=== PATIENT | female | born 1980 | race Caucasian/White ===

== ENCOUNTER 2022-06-07 17:53 | Inpatient (IN) ==
[2022-06-07] MEDS ORDERED: IPRATROPIUM/ALBUTEROL 3 ML AMPUL.NEB NEB ONE (20:05)
--- NOTE | 2022-06-07 20:10 | Emergency Department Note ---
SOB HPI General Chief Complaint: Shortness of Breath/Dyspnea Stated Complaint: phuemonia getting worse Time Seen by Provider: 06/07/22 19:59 Source: patient Mode of arrival: ambulatory Limitations: no limitations History of Present Illness HPI Narrative: Narrative: Patient presents back to the ED with complaints of feeling worse than yesterday. She still reports shortness of breath. She states she feels like she is not getting enough air when. She reports her fever has improved. She denies hemoptysis, cardiac chest pain, heart palpitation, pain range her left arm or neck, nausea, vomiting, diarrhea abdominal pain. She states has been using her antibiotics as prescribed. Patient denies any relieving or aggravating factors. Related Data Previous Rx's Medication Instructions Recorded amoxicillin 875 mg-potassium 1 tab PO BID 7 days #14 tabs 06/06/22 clavulanate 125 mg tablet azithromycin 250 mg tablet See Rx Instructions PO .COMPLEX #6 06/07/22 tabs Allergies Allergy/AdvReac Type Severity Reaction Status Date / Time House Dust Allergy Unknown Sneezing, Verified 06/06/22 23:34 Cough, Sinus Issues pollen extracts Allergy Unknown Sneezing, Verified 06/06/22 23:34 Cough, Sinus Issues Review of Systems ROS ROS Narrative: Narrative: All systems ED: reviewed and negative except as stated. [facility] Narrative Patient History Narrative: Narrative: Medical/Surgical/Family History All Active Problems (Updated 06/07/22 @ 20:22 by Solomon Cotter DO) Sepsis (Acute) Bilateral pneumonia (Acute) Pronation of both feet (Acute) Strain of tendon of ankle (Acute) Xanthoma (Acute) Morbid obesity with BMI of 40.0-44.9, adult (Acute) Gestational diabetes (Chronic) Migraine (Chronic) Seasonal allergies (Chronic) Medical History Gestational diabetes With first . Migraine Occasional Morbid obesity with BMI of 40.0-44.9, adult Pronation of both feet Seasonal allergies Sneezing, Cough, Sinus Issues Strain of tendon of ankle Xanthoma Surgical History History of 2001, 2002, 2007 History of cholecystectomy (~2019) Family History Sister Brain cancer Grandmother Breast cancer Maternal Diabetes mellitus Maternal Father Hypertension Social History Smoking Status: Never smoker Alcohol Intake Frequency: a few times a month Substance Use: marijuana Exam Narrative Narrative: Narrative: General Limitations: no limitations General appearance: Absent in distress ENT ENT: Present normal oropharynx and mucous membranes moist Chest Chest: Present normal inspection; Absent tenderness Respiratory Respiratory: Present rales/crackles and decreased breath sounds; Absent respirat ory distress Cardiovascular Cardiovascular: Present normal rhythm and tachycardia Adbominal Abdominal: Present soft; Absent tenderness Neurological Neurological: Present oriented X3 and normal gait Psychiatric Psychiatric: Present anxious and polite Skin Skin: Present warm (WNL) and intact Course Course Course Narrative: Patient was evaluated for complaints of worsening shortness of breath. Patient maintained adequate oxygen saturation of greater than 90% on room air. I did give her a breathing treatment with a DuoNeb and her oxygen level did improve up to 97% on room air. Repeat chest x-ray today shows that his mildly worse when compared to previous chest x-ray. Repeat lab work showed that her white cell count is worse when compared to last night. She still tachycardic and tachypneic. Patient has been on Augmentin x2 days as well as the IV antibiotics I gave her last night here in the ED believe patient to be failing outpatient therapy. Patient does meet sepsis criteria with leukocytosis, tachycardia, tachypnea and source of infection. She is afebrile today. Case was discussed with hospitalist who has agreed to admit the patient for worsening pneumonia and failed outpatient therapy. Patient understand that she does not meet inpatient criteria and will be admitted to observation. Patient expressed verbal understanding agreement of plan. Consultations Consultation #1: Case discussed with hospitalist agreed to admit the patient. Time: 20:40 Vital Signs Vital signs: Vital Signs Temperature 97.3 F 06/07/22 17:57 Pulse Rate 122 H 06/07/22 17:57 Respiratory Rate 24 H 06/07/22 17:57 Blood Pressure 128/87 06/07/22 17:57 Pulse Oximetry (%) 96 06/07/22 17:57 Oxygen Delivery Method Room Air 06/07/22 17:57 Temperature 97.3 F 06/07/22 17:57 Pulse Rate 122 H 06/07/22 17:57 Respiratory Rate 24 H 06/07/22 17:57 Blood Pressure 128/87 06/07/22 17:57 Pulse Oximetry (%) 96 06/07/22 17:57 Oxygen Delivery Method Room Air 06/07/22 17:57 MDM MDM Narrative Medical decision making narrative: Narrative: Differential Diagnosis Differential Diagnosis: Pneumonia, sepsis Medical Records Medical records reviewed: Yes I reviewed the patient's medical records. Lab Data Lab results reviewed: Yes I reviewed the patient's lab results. 06/07/22 20:10 Labs: Lab Results 06/07/22 06/07/22 06/07/22 Range/Units 20:07 20:08 20:10 WBC 20.8 H (4.5-11.0) K/mcL RBC 4.78 (3.59-5.38) M/mcL Hgb 13.7 (11.2-15.7) g/dL Hct 41.9 (34.1-44.9) % POC Hct 43.0 (36-48) MCV 87.7 (80.0-100.0) fL MCH 28.7 (26.0-34.0) pg MCHC 32.7 (31.0-36.0) g/dL RDW 13.7 (11.5-14.5) % Plt Count 300 (140-440) K/mcL MPV 9.9 (8.8-12.5) fL Immature Gran % (Auto) 1.1 H (0.0-0.5) % Neut % (Auto) 86.9 H (38.0-78.0) % Lymph % (Auto) 7.2 L (15.5-49.0) % [place] % (Auto) 2.9 (1.0-12.0) % Eos % (Auto) 1.7 (0.0-7.0) % Baso % (Auto) 0.2 (0.0-2.0) % Lymph # (Auto) 1.49 L (1.50-4.80) K/mcL [place] # (Auto) 0.61 (0.10-0.90) K/mcL Eos # (Auto) 0.36 (0.00-0.70) K/mcL Baso # (Auto) 0.04 (0.00-0.30) K/mcL Immature Gran # 0.22 H (0.00-0.05) K/mcl Absolute Neutrophils 18.11 H (1.80-8.00) K/mcL POC VBG pH 7.33 (7.32-7.42) POC VBG pCO2 at Temp 48.7 (41-51) POC VBG pO2 21 L (25-40) POC VBG HCO3 25.8 (24-28) POC VBG Total CO2 27.0 (25-29) POC Venous O2 Sat 30.0 L (40-70) POC VBG Base Excess 0 (-2-2) VBG Lactic Acid 0.9 (0.5-2) POC Sodium 137 (133-145) POC Potassium 3.6 (3.3-5.1) POC Chloride 101 (96-108) POC Total CO2 28.0 (22-30) POC BUN 15 (6-20) POC Creatinine 0.9 (0.6-1.2) POC Glucose 105 (70-105) POC WB Ioniz Calcium 1.14 L (1.16-1.32) POC Troponin I (0.00-0.08) 06/07/22 Range/Units 20:13 WBC (4.5-11.0) K/mcL RBC (3.59-5.38) M/mcL Hgb (11.2-15.7) g/dL Hct (34.1-44.9) % POC Hct (36-48) MCV (80.0-100.0) fL MCH (26.0-34.0) pg MCHC (31.0-36.0) g/dL RDW (11.5-14.5) % Plt Count (140-440) K/mcL MPV (8.8-12.5) fL Immature Gran % (Auto) (0.0-0.5) % Neut % (Auto) (38.0-78.0) % Lymph % (Auto) (15.5-49.0) % [place] % (Auto) (1.0-12.0) % Eos % (Auto) (0.0-7.0) % Baso % (Auto) (0.0-2.0) % Lymph # (Auto) (1.50-4.80) K/mcL [place] # (Auto) (0.10-0.90) K/mcL Eos # (Auto) (0.00-0.70) K/mcL Baso # (Auto) (0.00-0.30) K/mcL Immature Gran # (0.00-0.05) K/mcl Absolute Neutrophils (1.80-8.00) K/mcL POC VBG pH (7.32-7.42) POC VBG pCO2 at Temp (41-51) POC VBG pO2 (25-40) POC VBG HCO3 (24-28) POC VBG Total CO2 (25-29) POC Venous O2 Sat (40-70) POC VBG Base Excess (-2-2) VBG Lactic Acid (0.5-2) POC Sodium (133-145) POC Potassium (3.3-5.1) POC Chloride (96-108) POC Total CO2 (22-30) POC BUN (6-20) POC Creatinine (0.6-1.2) POC Glucose (70-105) POC WB Ioniz Calcium (1.16-1.32) POC Troponin I 0.08 (0.00-0.08) Core Measures AMI Core Measures Followed: Yes Discharge Plan Patient/Caregiver Discharge Instructions Pt seen by SHOW CARD WRITER/PA only: No Clinical Impression: Sepsis Qualifiers: Sepsis type: sepsis due to unspecified organism Sepsis acute organ dysfunction status: without acute organ dysfunction Qualified Code(s): A41.9 - Sepsis, unspecified organism Bilateral pneumonia Qualifiers: Pneumonia type: due to unspecified organism Lung location: unspecified part of lung Qualified Code(s): J18.9 - Pneumonia, unspecified organism Patient Disposition: Xfer As Outpt/Obs ([facility]) Condition: Fair Follow up with: Linwood Mercado MD [Primary Care Provider] - Prescriptions: No Action amoxicillin-pot clavulanate 875-125 mg tablet 1 tab PO BID 7 Days Qty: 14 0RF azithromycin 250 mg tablet See Rx Instructions .ROUTE .COMPLEX Qty: 6 0RF Rx Instructions: For 250 mg dose pack: take 500 mg today (day 1), then 250 mg for 4 days (days 2-5)
[2022-06-07 20:11] LABS: POC Calcium, Ionized 1.14 (1.16-1.32); POC Creatinine 0.9 (0.6-1.2); POC Potassium 3.6 (3.3-5.1)
[2022-06-07] MEDS ORDERED: cefTRIAXone 2 GM in DEXTROSE 5% IN WATER 50 ML IV ONE (20:19)
[2022-06-07] MEDS ORDERED: AZITHROMYCIN 250 MG TABLET PO ONE (20:19)
[2022-06-07 20:46] LABS: Basophils # (Auto) 0.04 K/mcL (0.00-0.30); Basophils % (Auto) 0.2 % (0.0-2.0); Eosinophils # (Auto) 0.36 K/mcL (0.00-0.70); Eosinophils % (Auto) 1.7 % (0.0-7.0); Hematocrit 41.9 % (34.1-44.9); Hemoglobin 13.7 g/dL (11.2-15.7); Lymphocytes # (Auto) 1.49 K/mcL (1.50-4.80); Lymphocytes % (Auto) 7.2 % (15.5-49.0); Mean Cell Volume 87.7 fL (80.0-100.0); Mean Corpuscular HGB Conc 32.7 g/dL (31.0-36.0); Mean Platelet Volume 9.9 fL (8.8-12.5); Monocytes # (Auto) 0.61 K/mcL (0.10-0.90); Monocytes % (Auto) 2.9 % (1.0-12.0); Neutrophils % (Auto) 86.9 % (38.0-78.0); Platelet Count 300 K/mcL (140-440); RBC 4.78 M/mcL (3.59-5.38); Red Cell Distribution Width 13.7 % (11.5-14.5); WBC 20.8 K/mcL (4.5-11.0)
[2022-06-07] MEDS ORDERED: 0.9 % SODIUM CHLORIDE 1,000 ML IV ONE (20:49)
--- NOTE | 2022-06-07 21:00 | Internal Med History&Physical ---
HPI History of Present Illness Patient information: Note initiated : 06/07/22 at 8:50 pm Service Date, if different from initiated Date: [] Patient: Urmila Callejas a 42 y/o F admitted on for phuemonia getting worse. Chief Complaint: [] History of present illness: Ms. Callejas is a 42 year old F Patient states she presented to the urgent care on the in the evening and was diagnosed with acute viral syndrome. She was tested for COVID which was negative. She then went to the ED on the morning of the second because she was feeling worse. With shortness of breath and cough. She has been coughing up phlegm of brown sputum. She gets short of breath with ambulation. She had a fever that day. She had been prescribed Augmentin. She was tachycardic. She was on room air. She was discharged with a additional azithromycin. She had a CT of the chest which showed no PEs but did show bilateral pneumonia. She presents back to the ED because she says she feels worse. Continued shortness of breath and cough. Dyspnea on exertion. She has some pleuritic chest pain as well. She is afebrile in the ED, she is only barely tachypneic. Blood pressure stable. She does have a leukocytosis persistent. Lactate level is normal. EKG shows sinus tach She said fevers and chills but those are improving. She has diarrhea and says she gets diarrhea when she gets ill Review of Systems: Pertinent positives as above. Denies headache/nausea/vomiting/abdominal pain/. Remaining 10 point review of system reviewed negative PFSH PFSH All Active Problems (Updated 06/07/22 @ 20:22 by Solomon Cotter DO) Sepsis (Acute) Bilateral pneumonia (Acute) Pronation of both feet (Acute) Strain of tendon of ankle (Acute) Xanthoma (Acute) Morbid obesity with BMI of 40.0-44.9, adult (Acute) Gestational diabetes (Chronic) Migraine (Chronic) Seasonal allergies (Chronic) Medical History Gestational diabetes With first . Migraine Occasional Morbid obesity with BMI of 40.0-44.9, adult Pronation of both feet Seasonal allergies Sneezing, Cough, Sinus Issues Strain of tendon of ankle Xanthoma Surgical History History of 2001, 2002, 2007 History of cholecystectomy (~2019) Family History Sister Brain cancer Grandmother Breast cancer Maternal Diabetes mellitus Maternal Father Hypertension Social History marital status: occupational status: employed smoking status: Never smoker alcohol intake frequency: a few times a month substance use type: marijuana MEDS/ALLERGIES Home Medications and Allergies Home Medications Medication Instructions Recorded Confirmed Type amoxicillin 875 mg-potassium 1 tab PO BID 7 days #14 tabs 06/06/22 Rx clavulanate 125 mg tablet azithromycin 250 mg tablet See Rx Instructions PO .COMPLEX #6 06/07/22 Rx tabs Allergies Allergy/AdvReac Type Severity Reaction Status Date / Time House Dust Allergy Unknown Sneezing, Verified 06/06/22 23:34 Cough, Sinus Issues pollen extracts Allergy Unknown Sneezing, Verified 06/06/22 23:34 Cough, Sinus Issues EXAM Constitutional Vitals: Temp Pulse Resp BP Pulse Ox O2 Del Method 97.3 F 122 H 24 H 128/87 96 Room Air 06/07/22 17:57 06/07/22 17:57 06/07/22 17:57 06/07/22 17:57 06/07/22 17:57 06/07/22 17:57 Exam: General: Alert, Awake, appears anxious, obese Eyes/N/T: EOMI, PERRL, dry MM Head/Neck: neck supple, normocephalic atraumatic CV: Tachycardic but regular, No murmurs, normal s1/s2 Pulm: Rhonchi/rales b/l, no wheezing Abd: soft, nontender, +BS x4 Ext: no clubbing/cyanosis/edema Neuro: Alert, no focal deficits, moves all extremities, CN 2-12 grossly intact, sensations intact b/l upper/lower Skin: warm/dry DATA Data Completed and Pending Labs: Labs from last 24 hours 06/07/22 06/07/22 06/07/22 20:13 20:10 20:08 WBC 20.8 H RBC 4.78 Hgb 13.7 Hct 41.9 POC Hct MCV 87.7 MCH 28.7 MCHC 32.7 RDW 13.7 Plt Count 300 MPV 9.9 Immature Gran % (Auto) 1.1 H Neut % (Auto) 86.9 H Lymph % (Auto) 7.2 L [place] % (Auto) 2.9 Eos % (Auto) 1.7 Baso % (Auto) 0.2 Lymph # (Auto) 1.49 L [place] # (Auto) 0.61 Eos # (Auto) 0.36 Baso # (Auto) 0.04 Immature Gran # 0.22 H Absolute Neutrophils 18.11 H POC VBG pH 7.33 POC VBG pCO2 at Temp 48.7 POC VBG pO2 21 L POC VBG HCO3 25.8 POC VBG Total CO2 27.0 POC Venous O2 Sat 30.0 L POC VBG Base Excess 0 VBG Lactic Acid 0.9 POC Sodium POC Potassium POC Chloride POC Total CO2 POC BUN POC Creatinine POC Glucose POC WB Ioniz Calcium POC Troponin I 0.08 06/07/22 20:07 WBC RBC Hgb Hct POC Hct 43.0 MCV MCH MCHC RDW Plt Count MPV Immature Gran % (Auto) Neut % (Auto) Lymph % (Auto) [place] % (Auto) Eos % (Auto) Baso % (Auto) Lymph # (Auto) [place] # (Auto) Eos # (Auto) Baso # (Auto) Immature Gran # Absolute Neutrophils POC VBG pH POC VBG pCO2 at Temp POC VBG pO2 POC VBG HCO3 POC VBG Total CO2 POC Venous O2 Sat POC VBG Base Excess VBG Lactic Acid POC Sodium 137 POC Potassium 3.6 POC Chloride 101 POC Total CO2 28.0 POC BUN 15 POC Creatinine 0.9 POC Glucose 105 POC WB Ioniz Calcium 1.14 L POC Troponin I A/P Narrative A/P Narrative: A: *b/l PNA: -on room air, PSI=34 -CTA no pe, b/l pna *SIRS: tachycardia, mild tachypnea, leukocytosis. afebrile *Sinus tach: likely anxiety component *Obesity: BMI 41 * P: -IV abx, mrsa screen -pending BC/SC -IS/Acapella, nebs -covid pending -strep pending -Monitor O2 sats and rhythm/pulse -cmp, sputum, pct -ppx: Lovenox Time Spent With Patient Time: Total time spent is greater than 50% in coordination of care (as documented) at patient's floor/unit and/or counseling patient: Initial: Total time with patient: 75 - 90 minutes
[2022-06-07 21:27] LABS: ALT/SGPT 17 U/L (<40); AST/SGOT 15 U/L (<32); Albumin 3.5 gm/dL (3.2-5.2); Alkaline Phosphatase 118 U/L (39-117); Bilirubin,Direct < 0.2 mg/dL (0-0.3); Bilirubin,Total 0.4 mg/dL (0.1-1.0)
[2022-06-07 21:48] LABS: Band Neutrophils % 5 % (0-10); Eosinophils % (Manual) 4 % (0-7); Lymphocytes % 7 % (15-49); Monocytes % (Manual) 2 % (1-12); Platelet Estimate NORMAL (Normal); RBC Morphology NORMAL (Normal); Segmented Neutrophils % 82 % (38-78)
[2022-06-07] MEDS ORDERED: POTASSIUM CHLORIDE 20 MEQ TABLET PO PRN ×2 (22:20)
[2022-06-07] MEDS ORDERED: AZITHROMYCIN 500 MG in DEXTROSE 5% IN WATER 250 ML IV SCH (22:20)
[2022-06-07] MEDS ORDERED: MAGNESIUM SULFATE 2 GM/50 ML BAG IV PRN (22:20)
[2022-06-07] MEDS ORDERED: cefTRIAXone 2 GM in DEXTROSE 5% IN WATER 50 ML IV SCH (22:20)
[2022-06-07] MEDS ORDERED: POTASSIUM CHLORIDE 40 MEQ in DEXTROSE 5% IN WATER 500 ML IV PRN (22:20)
[2022-06-07] MEDS ORDERED: ONDANSETRON 4 MG/2 ML VIAL IV PRN (22:20)
[2022-06-07] MEDS: 0.9 % SODIUM CHLORIDE 10 ML SYRINGE IV SCH (23:05)
[2022-06-08] MEDS ORDERED: ACETAMINOPHEN 325 MG TABLET PO ONE ×2 (00:09→06:06)
[2022-06-08] MEDS: ACETAMINOPHEN 325 MG TABLET PO PRN ×2 (00:11→06:07)
[2022-06-08] MEDS: 0.9 % SODIUM CHLORIDE 10 ML SYRINGE IV SCH ×4 (05:35→21:54)
--- NOTE | 2022-06-08 05:53 | XRay Report ---
INDICATION: sob TECHNIQUE: AP portable upright chest x-ray COMPARISON: Previous chest x-ray dated 06/06/2022. Previous pulmonary CTA dated 06/07/2022 FINDINGS: Lungs:Again demonstrated are diffuse left lung infiltrates and right perihilar infiltrates. Appearance remains consistent with pneumonia. Left sided infiltrates may be slightly improved since 06/06/2022. No new abnormality. Heart, vascular:No significant cardiomegaly. Pulmonary vascularity is normal. No pulmonary edema or pulmonary congestion Mediastinum, maria:No mediastinal widening. No hilar mass Pleura:No pleural fluid. No pleural-based mass or calcification Skeletal:Negative. IMPRESSION: 1. Bilateral pulmonary parenchymal infiltrates consistent with pneumonia 2. Possible slight interval improvement in the left upper lobe infiltrates. Interpreted and Authenticated by: Prieto Mcfadden 06/08/22
[2022-06-08] MEDS: LORazepam 2 MG/ML VIAL IV PRN ×2 (07:57→21:53)
--- NOTE | 2022-06-08 08:19 | Internal Med Progress Note ---
SUBJECTIVE Subjective Patient information: Note initiated : 06/08/22 at 8:15 am Service Date, if different from initiated Date: [] Patient: Urmila Callejas 42 y/o F admitted on 06/07/22 for phuemonia getting worse. Chief Complaint: [] Interval history: History of present illness: Ms. Callejas is a 42 year old F Patient states she presented to the urgent care on the in the evening and was diagnosed with acute viral syndrome. She was tested for COVID which was negative. She then went to the ED on the morning of the second because she was feeling worse. With shortness of breath and cough. She has been coughing up phlegm of brown sputum. She gets short of breath with ambulation. She had a fever that day. She had been prescribed Augmentin. She was tachycardic. She was on room air. She was discharged with a additional azithromycin. She had a CT of the chest which showed no PEs but did show bilateral pneumonia. She presents back to the ED because she says she feels worse. Continued shortness of breath and cough. Dyspnea on exertion. She has some pleuritic chest pain as well. She is afebrile in the ED, she is only barely tachypneic. Blood pressure stable. She does have a leukocytosis persistent. Lactate level is normal. EKG shows sinus tach She said fevers and chills but those are improving. She has diarrhea and says she gets diarrhea when she gets ill 2/3 Patient has had some anxiety over the past several days. She does complain of mild headache and cough is not quite as productive as it used to be. She has shortness of breath with exertion. She has occasional diarrhea which she says she gets when she gets ill Leukocytosis improving. Respiratory viral panel positive for human metapneumovirus. COVID flu and RSV negative. Review of Systems: denies /fever/chills/nausea/vomiting/chest or abdominal pain. Otherwise see above. Constitutional Vitals: Vital Signs Temp Pulse Resp BP Pulse Ox O2 Del Method 98.6 F 116 H 24 H 136/91 97 Room Air 06/08/22 03:02 06/08/22 03:02 06/08/22 03:02 06/08/22 03:02 06/08/22 03:02 06/08/22 03:02 Period Temp Pulse Resp BP Sys/Willis Pulse Ox O2 Del Method O2 Flow Rate Last 24 Hr 97.3 F-99.3 F 116-128 20-24 118-143/79-107 96-100 Room Air- Room Air Intake and Output 06/07/22 06/08/22 06/08/22 19:59 03:59 11:59 Intake Total 1050 Output Total 475 Balance 575 Weight 109.769 kg 111.947 kg Intake & Output: Intake & Output 06/07/22 06/08/22 06/08/22 19:59 03:59 11:59 Intake Total 1050 Output Total 475 Balance 575 Weight 109.769 kg 111.947 kg Intake: IV 1050 Sodium Chloride 0.9% 1,000 ml @ 1000 Wide Open IV BOLUS ONE Rx#: [id number] Rocephin 2 gm In Dextrose 5% in 50 Water 50 ml @ 100 mls/hr IV ONCE ONE Rx#:[id number] Output: Void Amount 75 Urine/Stool Mix 400 Other: Urine Color Yellow Stool Consistency Loose Exam: General: Alert, Awake, appears anxious, obese Eyes/N/T: EOMI, Head/Neck: neck supple, CV: mild Tachycardic but regular, No murmurs, Pulm: mild wheezing, minimal rhonchi now Abd: soft, nontender, +BS x4 Ext: no clubbing/cyanosis/edema Neuro: Alert, no focal deficits, moves all extremities, Skin: warm/dry OBJ DATA Labs 06/07/22 20:10 06/08/22 05:03 Labs: Abnormal Lab Results 06/07/22 06/07/22 06/07/22 20:55 20:53 20:49 WBC Immature Gran % (Auto) Neut % (Auto) Lymph % (Auto) Lymph # (Auto) Seg Neutrophils % 82 H Lymphocytes % 7 L Immature Gran # Absolute Neutrophils POC VBG pO2 POC Venous O2 Sat POC WB Ioniz Calcium Alkaline Phosphatase 118 H Globulin 4.0 H Procalcitonin 1.43 H 06/07/22 06/07/22 06/07/22 20:10 20:08 20:07 WBC 20.8 H Immature Gran % (Auto) 1.1 H Neut % (Auto) 86.9 H Lymph % (Auto) 7.2 L Lymph # (Auto) 1.49 L Seg Neutrophils % Lymphocytes % Immature Gran # 0.22 H Absolute Neutrophils 18.11 H POC VBG pO2 21 L POC Venous O2 Sat 30.0 L POC WB Ioniz Calcium 1.14 L Alkaline Phosphatase Globulin Procalcitonin Meds: Medications Acetaminophen (Acetaminophen 325 Mg Tablet) 650 mg PO Q6HP PRN; Protocol PRN Reason: Per Pain Protocol/Fever > 101 Last Admin: 06/08/22 06:07 Dose: 650 mg Hydrocodone Bitart/Acetaminophen (Hydrocodone/Apap 5/325mg Tablet) 1 tab PO Q4HP PRN PRN Reason: PAIN LEVEL 3-6 Albuterol/Ipratropium (Ipratropium/Albuterol 3 Ml Ampul.Neb) 3 ml NEB Q4HP PRN PRN Reason: Shortness Of Breath Enoxaparin Sodium (Enoxaparin 40 Mg/0.4 Ml Syringe) 40 mg SQ DAILY [facility] Potassium Chloride 40 meq/ (Dextrose) 520 mls @ 130 mls/hr IV UD PRN PRN Reason: Potassium < 3 Magnesium Sulfate (Magnesium Sulfate) 2 gm in 50 mls @ 50 mls/hr IV UD PRN PRN Reason: Magnesium </= 1.6 Azithromycin 500 mg/ Dextrose 250 mls @ 250 mls/hr IV Q24H [facility]; Protocol Stop: 06/10/22 10:59 Ceftriaxone Sodium 2 gm/ (Dextrose) 50 mls @ 100 mls/hr IV Q24H [facility]; Protocol Lorazepam (Lorazepam 2 Mg/Ml Vial) 0.5 mg IV Q6HP PRN PRN Reason: ANXIETY/SEDATION Last Admin: 06/08/22 07:57 Dose: 0.5 mg Ondansetron HCl (Ondansetron 4 Mg/2 Ml Vial) 4 mg IV Q4HP PRN PRN Reason: Nausea And Vomiting Potassium Chloride (Potassium Chloride 20 Meq Tablet) 40 meq PO UD PRN PRN Reason: Potssium is 3-3.5 Potassium Chloride (Potassium Chloride 20 Meq Tablet) 40 meq PO UD PRN PRN Reason: Potassium < 3 Sodium Chloride (0.9 % Sodium Chloride 10 Ml Syringe) 10 ml IV Q8 [place] Last Admin: 06/08/22 05:35 Dose: 10 ml A/P Narrative A/P Narrative: A: *b/l PNA: -on room air, PSI=34 -CTA no pe, b/l pna -strep/covid/flu/rsv neg -(+) Human metapneumovirus, Elevated PCT *Sepsis: tachycardia, mild tachypnea, leukocytosis no bandemia. afebrile *Sinus tach: likely anxiety component, no PE *Obesity: BMI 41 *Anxiety: P: -IV abx, mrsa screen neg -pending BC/SC -IS/Acapella, nebs -trend pct -Monitor O2 sats and rhythm/pulse -cmp, sputum, pct -ppx: Lovenox Time Spent With Patient Time: Total time spent is greater than 50% in coordination of care (as documented) at patient's floor/unit and/or counseling patient: Subsequent: Total time with patient: 50 - 65 Minutes
[2022-06-08 08:25] LABS: Hematocrit 38.2 % (34.1-44.9); Hemoglobin 12.1 g/dL (11.2-15.7); Mean Cell Volume 88.8 fL (80.0-100.0); Mean Corpuscular HGB Conc 31.7 g/dL (31.0-36.0); Mean Platelet Volume 10.2 fL (8.8-12.5); Platelet Count 269 K/mcL (140-440); Red Cell Distribution Width 13.8 % (11.5-14.5); WBC 14.7 K/mcL (4.5-11.0)
[2022-06-08] MEDS ORDERED: METOPROLOL TARTRATE 5 MG/5 ML VIAL IV ONE ×2 (08:46→15:27)
[2022-06-08 09:07] LABS: ALT/SGPT 13 U/L (<40); AST/SGOT 14 U/L (<32); Albumin 3.1 gm/dL (3.2-5.2); Albumin/Globulin Ratio 0.8 (1.0-2.3); Alkaline Phosphatase 140 U/L (39-117); Bilirubin,Direct < 0.2 mg/dL (0-0.3); Bilirubin,Total 0.2 mg/dL (0.1-1.0); Blood Urea Nitrogen 9 mg/dL (6-20); Calcium 8.4 mg/dL (8.6-10.4); Carbon Dioxide 24 mmol/L (22-30); Chloride 99 mmol/L (96-108); Globulin 3.7 gm/dL (2.2-3.7); Glomerular Filtration Rate 105; Glucose 89 mg/dL (70-105); Lactate Dehydrogenase 224 U/L (135-225); Phosphorous 2.3 mg/dL (2.5-4.5); Triglycerides 152 mg/dL (<150); Uric Acid 3.4 mg/dL (2.5-8.0)
[2022-06-08 09:20] LABS: Band Neutrophils % 10 % (0-10); Hypochromasia 1+ (None Seen); Lymphocytes % 7 % (15-49); Monocytes % (Manual) 5 % (1-12); Platelet Estimate NORMAL (Normal); RBC Morphology ABNORMAL (Normal); Segmented Neutrophils % 78 % (38-78)
[2022-06-08] MEDS: guaiFENesin 600 MG TAB.SR.12H PO SCH ×2 (10:19→21:10)
[2022-06-08] MEDS: cefTRIAXone 2 GM in DEXTROSE 5% IN WATER 50 ML IV SCH (10:19)
[2022-06-08] MEDS: ENOXAPARIN 40 MG/0.4 ML SYRINGE SQ SCH (10:19)
[2022-06-08] MEDS: AZITHROMYCIN 500 MG in DEXTROSE 5% IN WATER 250 ML IV SCH (10:57)
[2022-06-08] MEDS: HYDROcodone/APAP 5/325MG TABLET PO PRN ×3 (11:03→21:10)
--- NOTE | 2022-06-08 14:03 | Discharge Summary ---
Discharge Provider Provider IMPORTANT FOLLOW-UP INFORMATION FOR PCP: Patient information: Note initiated : 06/08/22 at 2:03 pm Service Date, if different from initiated Date: [] Patient: Urmila Callejas 42 y/o F admitted on 06/08/22 for phuemonia getting worse. Chief Complaint: [] Date of admission: 06/08/22 10:22 Discharge date: 06/11/22 Primary care physician: Linwood Mercado MD Consults: 06/07/22 Consult to Physician [CONS] Stat Comment: Consulting Provider: Josue Almazan Reason For Exam: Physician to Consult COURSE Hospital Course Hospital course: History of present illness: Ms. Callejas is a 42 year old F Patient states she presented to the urgent care on the in the evening and was diagnosed with acute viral syndrome. She was tested for COVID which was negative. She then went to the ED on the morning of the second because she was feeling worse. With shortness of breath and cough. She has been coughing up phlegm of brown sputum. She gets short of breath with ambulation. She had a fever that day. She had been prescribed Augmentin. She was tachycardic. She was on room air. She was discharged with a additional azithromycin. She had a CT of the chest which showed no PEs but did show bilateral pneumonia. She presents back to the ED because she says she feels worse. Continued shortness of breath and cough. Dyspnea on exertion. She has some pleuritic chest pain as well. She is afebrile in the ED, she is only barely tachypneic. Blood pressure stable. She does have a leukocytosis persistent. Lactate level is normal. EKG shows sinus tach She said fevers and chills but those are improving. She has diarrhea and says she gets diarrhea when she gets ill 2/3 Patient has had some anxiety over the past several days. She does complain of mild headache and cough is not quite as productive as it used to be. She has shortness of breath with exertion. She has occasional diarrhea which she says she gets when she gets ill Leukocytosis improving. Respiratory viral panel positive for human metapneumovirus. COVID flu and RSV negative. 2/4 Leukocytosis slowly improving. pending manual differential as bandemia started to increase yesterday although still wnl. Patient had a coughing fit in the middle the night and desaturated down to 89% and placed on oxygen. We will trial her on room air today. Tachycardia is sinus. Elevated D-dimer we will recheck CTA given significant dyspnea persistent and PaO2 on ABG only 59. Patient has continued cough and shortness of breath. broadened abx for worsening bandemia and symptoms. 06/10 CTA with no PE but bilateral pneumonia noted although with slight improvement. Patient feels her cough and shortness of breath although still present is slowly improving. Leukocytosis . CRP elevated. PCT improving. 06/11 Patient borderline hypoxia and placed on nasal cannula yesterday afternoon. Leukocytosis today from steroids. Patient will discharge after RT does home oxygen evaluation. CRP much improved. A: *b/l PNA: -(+) Human metapneumovirus, SC with GPC in pairs, *Acute hypoxic Respiratory failure: *Sepsis: *Sinus tach: *Reactive airway: *Hyponatremia: *Obesity: BMI 42 *Anxiety: P: -abx, has augmentin at home Discharge diagnosis: Pneumonia sepsis sinus tachycardia Secondary discharge diagnosis: Obesity Anxiety Time Spent with Patient Time attestation: Total time spent providing and/or coordinating discharge services: Time spent: Greater than 30 minutes EXAM Constitutional Vitals: Temp Pulse Resp BP Pulse Ox O2 Del Method 98.6 F 117 H 24 H 143/96 95 Room Air 06/08/22 12:00 06/08/22 12:00 06/08/22 12:00 06/08/22 12:00 06/08/22 12:00 06/08/22 12:00 Discharge Data Data Completed and Pending Labs on day of discharge: Labs from last 24 hours 06/08/22 06/08/22 06/08/22 05:03 05:03 03:08 WBC 14.7 H RBC 4.30 Hgb 12.1 Hct 38.2 POC Hct MCV 88.8 MCH 28.1 MCHC 31.7 RDW 13.8 Plt Count 269 MPV 10.2 Immature Gran % (Auto) Neut % (Auto) Lymph % (Auto) Spink % (Auto) Eos % (Auto) Baso % (Auto) Lymph # (Auto) Spink # (Auto) Eos # (Auto) Baso # (Auto) Seg Neutrophils % 78 Band Neutrophils % 10 Lymphocytes % 7 L Monocytes % (Manual) 5 Eosinophils % (Manual) Immature Gran # Absolute Neutrophils Platelet Estimate Normal RBC Morphology Abnormal A Hypochromasia 1+ A POC VBG pH POC VBG pCO2 at Temp POC VBG pO2 POC VBG HCO3 POC VBG Total CO2 POC Venous O2 Sat POC VBG Base Excess VBG Lactic Acid POC Sodium Sodium 136 POC Potassium Potassium 3.8 POC Chloride Chloride 99 Carbon Dioxide 24 POC Total CO2 Anion Gap 13.0 POC BUN BUN 9 Creatinine 0.7 POC Creatinine GFR Calculation 105 Glucose 89 POC Glucose Uric Acid 3.4 Calcium 8.4 L POC WB Ioniz Calcium Phosphorus 2.3 L Magnesium 2.2 Total Bilirubin 0.2 Direct Bilirubin < 0.2 GGT 26 AST 14 ALT 13 Alkaline Phosphatase 140 H Lactate Dehydrogenase 224 Total Protein 6.8 Albumin 3.1 L Globulin 3.7 Albumin/Globulin Ratio 0.8 L Triglycerides 152 H Procalcitonin Ur Strep pneumoniae Ag Negative POC Troponin I 06/07/22 06/07/22 06/07/22 20:55 20:53 20:49 WBC RBC Hgb Hct POC Hct MCV MCH MCHC RDW Plt Count MPV Immature Gran % (Auto) Neut % (Auto) Lymph % (Auto) Spink % (Auto) Eos % (Auto) Baso % (Auto) Lymph # (Auto) Spink # (Auto) Eos # (Auto) Baso # (Auto) Seg Neutrophils % 82 H Band Neutrophils % 5 Lymphocytes % 7 L Monocytes % (Manual) 2 Eosinophils % (Manual) 4 Immature Gran # Absolute Neutrophils Platelet Estimate Normal RBC Morphology Normal Hypochromasia POC VBG pH POC VBG pCO2 at Temp POC VBG pO2 POC VBG HCO3 POC VBG Total CO2 POC Venous O2 Sat POC VBG Base Excess VBG Lactic Acid POC Sodium Sodium POC Potassium Potassium POC Chloride Chloride Carbon Dioxide POC Total CO2 Anion Gap POC BUN BUN Creatinine POC Creatinine GFR Calculation Glucose POC Glucose Uric Acid Calcium POC WB Ioniz Calcium Phosphorus Magnesium Total Bilirubin 0.4 Direct Bilirubin < 0.2 GGT AST 15 ALT 17 Alkaline Phosphatase 118 H Lactate Dehydrogenase Total Protein 7.5 Albumin 3.5 Globulin 4.0 H Albumin/Globulin Ratio Triglycerides Procalcitonin 1.43 H Ur Strep pneumoniae Ag POC Troponin I 06/07/22 06/07/22 06/07/22 20:13 20:10 20:08 WBC 20.8 H RBC 4.78 Hgb 13.7 Hct 41.9 POC Hct MCV 87.7 MCH 28.7 MCHC 32.7 RDW 13.7 Plt Count 300 MPV 9.9 Immature Gran % (Auto) 1.1 H Neut % (Auto) 86.9 H Lymph % (Auto) 7.2 L Spink % (Auto) 2.9 Eos % (Auto) 1.7 Baso % (Auto) 0.2 Lymph # (Auto) 1.49 L Spink # (Auto) 0.61 Eos # (Auto) 0.36 Baso # (Auto) 0.04 Seg Neutrophils % Band Neutrophils % Lymphocytes % Monocytes % (Manual) Eosinophils % (Manual) Immature Gran # 0.22 H Absolute Neutrophils 18.11 H Platelet Estimate RBC Morphology Hypochromasia POC VBG pH 7.33 POC VBG pCO2 at Temp 48.7 POC VBG pO2 21 L POC VBG HCO3 25.8 POC VBG Total CO2 27.0 POC Venous O2 Sat 30.0 L POC VBG Base Excess 0 VBG Lactic Acid 0.9 POC Sodium Sodium POC Potassium Potassium POC Chloride Chloride Carbon Dioxide POC Total CO2 Anion Gap POC BUN BUN Creatinine POC Creatinine GFR Calculation Glucose POC Glucose Uric Acid Calcium POC WB Ioniz Calcium Phosphorus Magnesium Total Bilirubin Direct Bilirubin GGT AST ALT Alkaline Phosphatase Lactate Dehydrogenase Total Protein Albumin Globulin Albumin/Globulin Ratio Triglycerides Procalcitonin Ur Strep pneumoniae Ag POC Troponin I 0.08 06/07/22 20:07 WBC RBC Hgb Hct POC Hct 43.0 MCV MCH MCHC RDW Plt Count MPV Immature Gran % (Auto) Neut % (Auto) Lymph % (Auto) Spink % (Auto) Eos % (Auto) Baso % (Auto) Lymph # (Auto) Spink # (Auto) Eos # (Auto) Baso # (Auto) Seg Neutrophils % Band Neutrophils % Lymphocytes % Monocytes % (Manual) Eosinophils % (Manual) Immature Gran # Absolute Neutrophils Platelet Estimate RBC Morphology Hypochromasia POC VBG pH POC VBG pCO2 at Temp POC VBG pO2 POC VBG HCO3 POC VBG Total CO2 POC Venous O2 Sat POC VBG Base Excess VBG Lactic Acid POC Sodium 137 Sodium POC Potassium 3.6 Potassium POC Chloride 101 Chloride Carbon Dioxide POC Total CO2 28.0 Anion Gap POC BUN 15 BUN Creatinine POC Creatinine 0.9 GFR Calculation Glucose POC Glucose 105 Uric Acid Calcium POC WB Ioniz Calcium 1.14 L Phosphorus Magnesium Total Bilirubin Direct Bilirubin GGT AST ALT Alkaline Phosphatase Lactate Dehydrogenase Total Protein Albumin Globulin Albumin/Globulin Ratio Triglycerides Procalcitonin Ur Strep pneumoniae Ag POC Troponin I Discharge Plan Patient/Caregiver Discharge Instructions Activity: increase activity as tolerated Diet: Regular Diet Activity Restrictions/Additional Instructions: Home oxygen per RT Prescriptions: Continued amoxicillin-pot clavulanate 875-125 mg tablet 1 tab PO BID 7 Days Qty: 14 0RF Discontinued azithromycin 250 mg tablet See Rx Instructions .ROUTE .COMPLEX Qty: 6 0RF Rx Instructions: For 250 mg dose pack: take 500 mg today (day 1), then 250 mg for 4 days (days 2-5) Follow Up Plan Follow up with: Linwood Mercado MD [Primary Care Provider] - Patient Disposition: Home, Self-Care Prognosis: Fair Overall status at discharge: patient is progressing back to baseline Discharge Orders: Discharge Order (Routine); Ordered 06/11/22 Ordered By: Josue Almazan
[2022-06-08] MEDS ORDERED: morphine 2 MG/ML VIAL IV ONE (15:27)
[2022-06-08] MEDS: IPRATROPIUM/ALBUTEROL 3 ML AMPUL.NEB NEB PRN ×2 (18:43→23:59)
[2022-06-09] MEDS: HYDROcodone/APAP 5/325MG TABLET PO PRN ×5 (00:55→20:06)
[2022-06-09] MEDS: LORazepam 2 MG/ML VIAL IV PRN (03:55)
[2022-06-09] MEDS: IPRATROPIUM/ALBUTEROL 3 ML AMPUL.NEB NEB PRN ×4 (04:00→17:12)
[2022-06-09] MEDS: 0.9 % SODIUM CHLORIDE 10 ML SYRINGE IV SCH ×3 (04:30→20:08)
[2022-06-09 06:31] LABS: Basophils # (Auto) 0.04 K/mcL (0.00-0.30); Basophils % (Auto) 0.3 % (0.0-2.0); Eosinophils # (Auto) 0.12 K/mcL (0.00-0.70); Eosinophils % (Auto) 0.9 % (0.0-7.0); Hematocrit 38.6 % (34.1-44.9); Hemoglobin 12.3 g/dL (11.2-15.7); Lymphocytes # (Auto) 1.76 K/mcL (1.50-4.80); Mean Cell Volume 86.5 fL (80.0-100.0); Mean Corpuscular HGB Conc 31.9 g/dL (31.0-36.0); Mean Platelet Volume 9.4 fL (8.8-12.5); Monocytes % (Auto) 4.4 % (1.0-12.0); Neutrophils % (Auto) 80.5 % (38.0-78.0); Platelet Count 338 K/mcL (140-440); RBC 4.46 M/mcL (3.59-5.38); Red Cell Distribution Width 13.8 % (11.5-14.5); WBC 13.5 K/mcL (4.5-11.0)
[2022-06-09 07:06] LABS: ALT/SGPT 26 U/L (<40); AST/SGOT 44 U/L (<32); Albumin/Globulin Ratio 0.7 (1.0-2.3); Alkaline Phosphatase 217 U/L (39-117); Bilirubin,Direct 0.4 mg/dL (<0.3); Bilirubin,Total 0.6 mg/dL (0.1-1.0); Blood Urea Nitrogen 9 mg/dL (6-20); Calcium 8.4 mg/dL (8.6-10.4); Carbon Dioxide 25 mmol/L (22-30); Chloride 94 mmol/L (96-108); Globulin 4.2 gm/dL (2.2-3.7); Glomerular Filtration Rate 111; Glucose 123 mg/dL (70-105); Lactate Dehydrogenase 241 U/L (135-225); Triglycerides 182 mg/dL (<150); Uric Acid 3.9 mg/dL (2.5-8.0)
--- NOTE | 2022-06-09 08:51 | Internal Med Progress Note ---
SUBJECTIVE Subjective Patient information: Note initiated : 06/09/22 at 8:44 am Service Date, if different from initiated Date: [] Patient: Urmila Callejas 42 y/o F admitted on 06/08/22 for phuemonia getting worse. Chief Complaint: [] Interval history: History of present illness: Ms. Callejas is a 42 year old F Patient states she presented to the urgent care on the in the evening and was diagnosed with acute viral syndrome. She was tested for COVID which was negative. She then went to the ED on the morning of the second because she was feeling worse. With shortness of breath and cough. She has been coughing up phlegm of brown sputum. She gets short of breath with ambulation. She had a fever that day. She had been prescribed Augmentin. She was tachycardic. She was on room air. She was discharged with a additional azithromycin. She had a CT of the chest which showed no PEs but did show bilateral pneumonia. She presents back to the ED because she says she feels worse. Continued shortness of breath and cough. Dyspnea on exertion. She has some pleuritic chest pain as well. She is afebrile in the ED, she is only barely tachypneic. Blood pressure stable. She does have a leukocytosis persistent. Lactate level is normal. EKG shows sinus tach She said fevers and chills but those are improving. She has diarrhea and says she gets diarrhea when she gets ill 2/3 Patient has had some anxiety over the past several days. She does complain of mild headache and cough is not quite as productive as it used to be. She has shortness of breath with exertion. She has occasional diarrhea which she says she gets when she gets ill Leukocytosis improving. Respiratory viral panel positive for human metapneumovirus. COVID flu and RSV negative. 2/4 Leukocytosis slowly improving. pending manual differential as bandemia started to increase yesterday although still wnl. Patient had a coughing fit in the middle the night and desaturated down to 89% and placed on oxygen. We will trial her on room air today. Tachycardia is sinus. Elevated D-dimer we will recheck CTA given significant dyspnea persistent and PaO2 on ABG only 59. Patient has continued cough and shortness of breath. Review of Systems: denies /fever/chills/nausea/vomiting/chest or abdominal pain. Otherwise see above. Constitutional Vitals: Vital Signs Temp Pulse Resp BP Pulse Ox O2 Del Method O2 Flow Rate 97.4 F 113 H 22 142/98 97 Nasal Cannula 1 06/09/22 07:58 06/09/22 07:58 06/09/22 07:58 06/09/22 07:58 06/09/22 07:58 06/09/22 07:58 06/09/22 07:58 Period Temp Pulse Resp BP Sys/Willis Pulse Ox O2 Del Method O2 Flow Rate Last 24 Hr 97.4 F-99.8 F 81-117 17-24 126-148/92-103 89-98 Nasal Cannula- Room Air 1-2 Intake and Output 06/08/22 06/09/22 06/09/22 19:59 03:59 11:59 Intake Total 850 240 240 Output Total 850 250 Balance 850 -610 -10 Weight 113.398 kg Intake & Output: Intake & Output 06/08/22 06/09/22 06/09/22 19:59 03:59 11:59 Intake Total 850 240 240 Output Total 850 250 Balance 850 -610 -10 Weight 113.398 kg Intake: IV 250 Zithromax 500 mg In Dextrose 5% 250 in Water 250 ml @ 250 mls/hr IV Q24H REPLACED BY [facility] Rx#:[id number] Oral 600 240 240 Output: Void Amount 250 Urine/Stool Mix 850 Other: Meal Lunch Dinner Percent of Meal Consumed 50% 25% Feeding Ability Independent Independent Urine Appearance Clear Urine Color Yellow Stool Size Moderate Stool Color Brown Green Stool Consistency Loose Exam: General: Alert, Awake, no acute distress, obese Eyes/N/T: EOMI, Head/Neck: neck supple, CV: Tachycardic but regular, No murmurs, Pulm: mild wheezing b/l, minimal rhonchi Abd: soft, nontender, +BS x4 Ext: no clubbing/cyanosis/edema Neuro: Alert, no focal deficits, moves all extremities, Skin: warm/dry OBJ DATA Labs 06/09/22 05:18 06/09/22 05:18 Labs: Abnormal Lab Results 06/09/22 06/09/22 06/09/22 07:44 05:18 05:18 WBC Immature Gran % (Auto) Neut % (Auto) Lymph % (Auto) Lymph # (Auto) Seg Neutrophils % Lymphocytes % Immature Gran # Absolute Neutrophils RBC Morphology Hypochromasia POC pO2 59 L POC VBG pO2 POC Venous O2 Sat Hgb O2 Saturation 90.0 L Sodium 131 L Chloride 94 L Glucose 123 H Calcium 8.4 L POC WB Ioniz Calcium Phosphorus Direct Bilirubin 0.4 H GGT 91 H AST 44 H Alkaline Phosphatase 217 H Lactate Dehydrogenase 241 H Albumin 3.0 L Globulin 4.2 H Albumin/Globulin Ratio 0.7 L Triglycerides 182 H Procalcitonin 0.56 H 06/09/22 06/08/22 06/08/22 05:18 05:03 05:03 WBC 13.5 H 14.7 H Immature Gran % (Auto) 0.9 H Neut % (Auto) 80.5 H Lymph % (Auto) 13.0 L Lymph # (Auto) Seg Neutrophils % Lymphocytes % 7 L Immature Gran # 0.12 H Absolute Neutrophils 10.89 H RBC Morphology Abnormal A Hypochromasia 1+ A POC pO2 POC VBG pO2 POC Venous O2 Sat Hgb O2 Saturation Sodium Chloride Glucose Calcium 8.4 L POC WB Ioniz Calcium Phosphorus 2.3 L Direct Bilirubin GGT AST Alkaline Phosphatase 140 H Lactate Dehydrogenase Albumin 3.1 L Globulin Albumin/Globulin Ratio 0.8 L Triglycerides 152 H Procalcitonin 06/07/22 06/07/22 06/07/22 20:55 20:53 20:49 WBC Immature Gran % (Auto) Neut % (Auto) Lymph % (Auto) Lymph # (Auto) Seg Neutrophils % 82 H Lymphocytes % 7 L Immature Gran # Absolute Neutrophils RBC Morphology Hypochromasia POC pO2 POC VBG pO2 POC Venous O2 Sat Hgb O2 Saturation Sodium Chloride Glucose Calcium POC WB Ioniz Calcium Phosphorus Direct Bilirubin GGT AST Alkaline Phosphatase 118 H Lactate Dehydrogenase Albumin Globulin 4.0 H Albumin/Globulin Ratio Triglycerides Procalcitonin 1.43 H 06/07/22 06/07/22 06/07/22 20:10 20:08 20:07 WBC 20.8 H Immature Gran % (Auto) 1.1 H Neut % (Auto) 86.9 H Lymph % (Auto) 7.2 L Lymph # (Auto) 1.49 L Seg Neutrophils % Lymphocytes % Immature Gran # 0.22 H Absolute Neutrophils 18.11 H RBC Morphology Hypochromasia POC pO2 POC VBG pO2 21 L POC Venous O2 Sat 30.0 L Hgb O2 Saturation Sodium Chloride Glucose Calcium POC WB Ioniz Calcium 1.14 L Phosphorus Direct Bilirubin GGT AST Alkaline Phosphatase Lactate Dehydrogenase Albumin Globulin Albumin/Globulin Ratio Triglycerides Procalcitonin Meds: Medications Acetaminophen (Acetaminophen 325 Mg Tablet) 650 mg PO Q6HP PRN; Protocol PRN Reason: Per Pain Protocol/Fever > 101 Last Admin: 06/08/22 06:07 Dose: 650 mg Hydrocodone Bitart/Acetaminophen (Hydrocodone/Apap 5/325mg Tablet) 1 tab PO Q4HP PRN PRN Reason: PAIN LEVEL 3-6 Last Admin: 06/09/22 04:32 Dose: 1 tab Albuterol/Ipratropium (Ipratropium/Albuterol 3 Ml Ampul.Neb) 3 ml NEB Q4HP PRN PRN Reason: Shortness Of Breath Last Admin: 06/09/22 07:47 Dose: 3 ml Enoxaparin Sodium (Enoxaparin 40 Mg/0.4 Ml Syringe) 40 mg SQ DAILY REPLACED BY [facility] Last Admin: 06/08/22 10:19 Dose: 40 mg Guaifenesin (Guaifenesin 600 Mg Tab.Sr.12h) 1,200 mg PO BID REPLACED BY [facility] Stop: 06/09/22 09:01 Last Admin: 06/08/22 21:10 Dose: 1,200 mg Potassium Chloride 40 meq/ (Dextrose) 520 mls @ 130 mls/hr IV UD PRN PRN Reason: Potassium < 3 Magnesium Sulfate (Magnesium Sulfate) 2 gm in 50 mls @ 50 mls/hr IV UD PRN PRN Reason: Magnesium </= 1.6 Azithromycin 500 mg/ Dextrose 250 mls @ 250 mls/hr IV Q24H REPLACED BY [facility]; Protocol Stop: 06/10/22 10:59 Last Infusion: 06/08/22 12:00 Dose: Infused Ceftriaxone Sodium 2 gm/ (Dextrose) 50 mls @ 100 mls/hr IV Q24H REPLACED BY [facility]; Protocol Last Infusion: 06/08/22 10:50 Dose: Infused Lorazepam (Lorazepam 2 Mg/Ml Vial) 0.5 mg IV Q6HP PRN PRN Reason: ANXIETY/SEDATION Last Admin: 06/09/22 03:55 Dose: 0.5 mg Ondansetron HCl (Ondansetron 4 Mg/2 Ml Vial) 4 mg IV Q4HP PRN PRN Reason: Nausea And Vomiting Potassium Chloride (Potassium Chloride 20 Meq Tablet) 40 meq PO UD PRN PRN Reason: Potssium is 3-3.5 Potassium Chloride (Potassium Chloride 20 Meq Tablet) 40 meq PO UD PRN PRN Reason: Potassium < 3 Sodium Chloride (0.9 % Sodium Chloride 10 Ml Syringe) 10 ml IV Q8 [place] Last Admin: 06/09/22 04:30 Dose: 10 ml A/P Narrative A/P Narrative: A: *b/l PNA: -on room air, PSI=34 -CTA no pe, b/l pna -strep/covid/flu/rsv neg -(+) Human metapneumovirus, Elevated PCT but improving *Acute hypoxic Resp failure: -dropped to 89 last night after coughing fit, on 1L NC *Sepsis: tachycardia, mild tachypnea, leukocytosis no bandemia(slowly improving). afebrile *Sinus tach: likely anxiety component, no PE *Reactive airway: start corticosteroids, continue nebulizers *Hyponatremia: *Obesity: BMI 41 *Anxiety: P: -IV abx, mrsa screen neg -pending BC/SC -IS/Acapella, nebs -trend pct -significant dyspnea without significant hypoxia, recheck dimer, check bnp/abg/chest imaging -CTA chest for persistent dyspnea/tachycardia/increasing ddimer, poor PaO2 -Monitor O2 sats and rhythm/pulse -cmp, sputum, pct -ppx: Lovenox Time Spent With Patient Time: Total time spent is greater than 50% in coordination of care (as documented) at patient's floor/unit and/or counseling patient: Subsequent: Total time with patient: 50 - 65 Minutes
[2022-06-09] MEDS: ENOXAPARIN 40 MG/0.4 ML SYRINGE SQ SCH (09:24)
[2022-06-09] MEDS: AZITHROMYCIN 500 MG in DEXTROSE 5% IN WATER 250 ML IV SCH (09:25)
[2022-06-09] MEDS: guaiFENesin 600 MG TAB.SR.12H PO SCH ×2 (09:25→20:06)
[2022-06-09] MEDS: cefTRIAXone 2 GM in DEXTROSE 5% IN WATER 50 ML IV SCH (09:25)
[2022-06-09] MEDS ORDERED: 0.9 % SODIUM CHLORIDE 500 ML IV SCH (10:00)
[2022-06-09] MEDS ORDERED: methylPREDNISolone SOD SUCC 125 MG/2 ML VIAL IV ONE (10:01)
[2022-06-09] MEDS ORDERED: IOPAMIDOL 100 ML BOTTLE IV ONE (12:05)
--- NOTE | 2022-06-09 12:21 | Cat Scan Report ---
INDICATION: persistent tachycardia/dyspnea, Incr dimer COMPARISON: Previous chest x-rays dated 06/07/2022, 06/06/2022. Previous chest CTA dated 06/07/2022 TECHNIQUE: Axial images obtained through the chest. 65 mLml Isovue 370 injected intravenously, and scanning was performed during pulmonary arterial phase. Sagittally and coronally reformatted images were obtained. MIP reformatted images. FINDINGS: Lungs:Bilateral pulmonary parenchymal consolidation. There is consolidation in the right lower lobe and right middle lobe. There is extensive left upper lobe consolidation. Findings remain consistent with pneumonia. There has been mild interval improvement. No new parenchymal infiltrates. Mediastinum, vascular:Main pulmonary artery, right pulmonary artery, left pulmonary artery are negative. No intraluminal filling defects. No lobar, segmental, or subsegmental emboli. Thoracic aorta is negative. No aneurysmal dilatation. Main pulmonary artery measures 28 mm in cross-sectional diameter. No enlargement No pathologic mediastinal or hilar adenopathy Heart:No cardiomegaly. There is a small pericardial effusion which appears slightly increased since 06/07/2022. No reflux of contrast material into the inferior vena cava or hepatic veins Pleura:Small bilateral pleural effusions are new since previous examination. No evidence for empyema Axilla, supraclavicular regions, chest wall:No pathologic axillary or supraclavicular adenopathy. Musculoskeletal:Negative thoracic spine. No compression fracture. No lytic lesion. No rib or sternal lesions Upper Abdomen:Previous cholecystectomy. No acute abnormality IMPRESSION: 1. Negative pulmonary CTA. No pulmonary 2. Bilateral pulmonary parenchymal consolidation consistent with pneumonia. Slight interval improvement 3. Small bilateral pleural effusions and small pericardial effusion. These findings have increased The exam was performed using radiation dose optimization techniques including, but not limited to, automated exposure control, adjustment of the mA and/or kV according to patient size and use of iterative reconstruction technique. Interpreted and Authenticated by: Prieto Mcfadden 06/09/22
[2022-06-09 14:06] LABS: Band Neutrophils % 18 % (0-10); Eosinophils % (Manual) 1 % (0-7); Lymphocytes % 6 % (15-49); Monocytes % (Manual) 1 % (1-12); Platelet Estimate NORMAL (Normal); RBC Morphology NORMAL (Normal); Reactive Lymphocytes 1 % (0-2); Segmented Neutrophils % 73 % (38-78)
[2022-06-09] MEDS ORDERED: METOPROLOL SUCCINATE 25 MG TAB.XL.24H PO ONE (14:26)
[2022-06-09] MEDS ORDERED: methylPREDNISolone SOD SUCC 40 MG/ML VIAL IV ONE (14:51)
[2022-06-09] MEDS: PIPERACILLIN SODIUM/TAZOBACTAM 3.375 GM in DEXTROSE 5% IN WATER 50 ML IV SCH ×2 (15:33→19:14)
[2022-06-09] MEDS ORDERED: predniSONE 20 MG TABLET PO SCH (17:30)
[2022-06-09] MEDS: predniSONE 20 MG TABLET PO SCH (20:06)
[2022-06-09] MEDS: IPRATROPIUM/ALBUTEROL 3 ML AMPUL.NEB NEB SCH (21:33)
[2022-06-10] MEDS: PIPERACILLIN SODIUM/TAZOBACTAM 3.375 GM in DEXTROSE 5% IN WATER 50 ML IV SCH ×4 (00:04→17:41)
[2022-06-10] MEDS: HYDROcodone/APAP 5/325MG TABLET PO PRN ×5 (00:04→22:23)
[2022-06-10] MEDS: LORazepam 2 MG/ML VIAL IV PRN (01:27)
[2022-06-10] MEDS: IPRATROPIUM/ALBUTEROL 3 ML AMPUL.NEB NEB PRN ×2 (01:28→05:31)
[2022-06-10] MEDS: 0.9 % SODIUM CHLORIDE 10 ML SYRINGE IV SCH ×3 (05:38→20:20)
[2022-06-10 06:46] LABS: Hematocrit 36.2 % (34.1-44.9); Hemoglobin 11.8 g/dL (11.2-15.7); Mean Cell Volume 87.4 fL (80.0-100.0); Mean Corpuscular HGB Conc 32.6 g/dL (31.0-36.0); Mean Platelet Volume 9.3 fL (8.8-12.5); Platelet Count 363 K/mcL (140-440); RBC 4.14 M/mcL (3.59-5.38); Red Cell Distribution Width 13.9 % (11.5-14.5); WBC 12.2 K/mcL (4.5-11.0)
[2022-06-10] MEDS: IPRATROPIUM/ALBUTEROL 3 ML AMPUL.NEB NEB SCH ×3 (07:16→18:49)
[2022-06-10 07:18] LABS: ALT/SGPT 26 U/L (<40); AST/SGOT 19 U/L (<32); Albumin 3.2 gm/dL (3.2-5.2); Albumin/Globulin Ratio 0.8 (1.0-2.3); Alkaline Phosphatase 187 U/L (39-117); Bilirubin,Direct < 0.2 mg/dL (0-0.3); Bilirubin,Total 0.2 mg/dL (0.1-1.0); Blood Urea Nitrogen 11 mg/dL (6-20); Calcium 8.7 mg/dL (8.6-10.4); Carbon Dioxide 30 mmol/L (22-30); Chloride 98 mmol/L (96-108); Globulin 3.8 gm/dL (2.2-3.7); Glomerular Filtration Rate 118; Glucose 164 mg/dL (70-105); Lactate Dehydrogenase 201 U/L (135-225); Phosphorous 2.6 mg/dL (2.5-4.5); Triglycerides 170 mg/dL (<150); Uric Acid 3.1 mg/dL (2.5-8.0)
[2022-06-10] MEDS: predniSONE 20 MG TABLET PO SCH ×2 (07:36→17:40)
[2022-06-10] MEDS ORDERED: METOPROLOL SUCCINATE 50 MG TAB.XL.24H PO ONE (08:44)
--- NOTE | 2022-06-10 08:45 | Internal Med Progress Note ---
SUBJECTIVE Subjective Patient information: Note initiated : 06/10/22 at 8:42 am Service Date, if different from initiated Date: [] Patient: Urmila Callejas 42 y/o F admitted on 06/08/22 for phuemonia getting worse. Chief Complaint: [] Interval history: History of present illness: Ms. Callejas is a 42 year old F Patient states she presented to the urgent care on the in the evening and was diagnosed with acute viral syndrome. She was tested for COVID which was negative. She then went to the ED on the morning of the second because she was feeling worse. With shortness of breath and cough. She has been coughing up phlegm of brown sputum. She gets short of breath with ambulation. She had a fever that day. She had been prescribed Augmentin. She was tachycardic. She was on room air. She was discharged with a additional azithromycin. She had a CT of the chest which showed no PEs but did show bilateral pneumonia. She presents back to the ED because she says she feels worse. Continued shortness of breath and cough. Dyspnea on exertion. She has some pleuritic chest pain as well. She is afebrile in the ED, she is only barely tachypneic. Blood pressure stable. She does have a leukocytosis persistent. Lactate level is normal. EKG shows sinus tach She said fevers and chills but those are improving. She has diarrhea and says she gets diarrhea when she gets ill 2/3 Patient has had some anxiety over the past several days. She does complain of mild headache and cough is not quite as productive as it used to be. She has shortness of breath with exertion. She has occasional diarrhea which she says she gets when she gets ill Leukocytosis improving. Respiratory viral panel positive for human metapneumovirus. COVID flu and RSV negative. 2/4 Leukocytosis slowly improving. pending manual differential as bandemia started to increase yesterday although still wnl. Patient had a coughing fit in the middle the night and desaturated down to 89% and placed on oxygen. We will trial her on room air today. Tachycardia is sinus. Elevated D-dimer we will recheck CTA given significant dyspnea persistent and PaO2 on ABG only 59. Patient has continued cough and shortness of breath. broadened abx for worsening bandemia and symptoms. 2/5 CTA with no PE but bilateral pneumonia noted although with slight improvement. Patient feels her cough and shortness of breath although still present is slowly improving. Leukocytosis . CRP elevated. PCT improving. Review of Systems: denies /fever/chills/nausea/vomiting/chest or abdominal pain. Otherwise see above. Constitutional Vitals: Vital Signs Temp Pulse Resp BP Pulse Ox O2 Del Method O2 Flow Rate 99.9 F H 99 H 20 141/90 94 Nasal Cannula 1 06/10/22 07:39 06/10/22 07:39 06/10/22 07:39 06/10/22 07:39 06/10/22 07:39 06/10/22 07:39 06/10/22 07:39 Period Temp Pulse Resp BP Sys/Willis Pulse Ox O2 Del Method O2 Flow Rate Last 24 Hr 96.7 F-99.9 F 90-114 16-24 131-160/87-108 91-96 Nasal Cannula- Room Air 1-2 Intake and Output 06/09/22 06/10/22 06/10/22 19:59 03:59 11:59 Intake Total 1450 50 750 Output Total 1250 400 375 Balance 200 -350 375 Weight 112.808 kg Intake & Output: Intake & Output 06/09/22 06/10/22 06/10/22 19:59 03:59 11:59 Intake Total 1450 50 750 Output Total 1250 400 375 Balance 200 -350 375 Weight 112.808 kg Intake: IV 850 50 Sodium Chloride 0.9% 500 ml @ 500 84 mls/hr IV .[id number] [place] Rx#: [id number] Zithromax 500 mg In Dextrose 5% 250 in Water 250 ml @ 250 mls/hr IV Q24H [place] Rx#:[id number] Zosyn 3.375 gm In Dextrose 5% 100 50 in Water 50 ml @ 100 mls/hr IV Q6H [place] Rx#:[id number] Oral 360 750 GI Tube Flush 240 Output: Void Amount 1250 400 375 Other: Meal Dinner Percent of Meal Consumed 50% Feeding Ability Independent Urine Appearance Clear Sediment Urine Color Dark Yellow Dark Yellow Yellow Exam: General: Alert, Awake, no acute distress, obese Eyes/N/T: EOMI, Head/Neck: neck supple, CV: Tachycardic but regular, No murmurs, Pulm: mild wheezing b/l, mild decreased BS Abd: soft, nontender, +BS x4 Ext: no clubbing/cyanosis/edema Neuro: Alert, no focal deficits, moves all extremities, Skin: warm/dry OBJ DATA Labs 06/10/22 05:52 06/10/22 05:52 Labs: Abnormal Lab Results 06/10/22 06/10/22 06/09/22 05:52 05:52 08:59 WBC 12.2 H Immature Gran % (Auto) Neut % (Auto) Lymph % (Auto) Lymph # (Auto) Seg Neutrophils % Band Neutrophils % 18 H Lymphocytes % 6 L Immature Gran # Absolute Neutrophils RBC Morphology Hypochromasia ESR D-Dimer POC pO2 POC VBG pO2 POC Venous O2 Sat Hgb O2 Saturation Sodium Chloride Anion Gap 7.0 L Creatinine 0.5 L Glucose 164 H Calcium POC WB Ioniz Calcium Phosphorus Direct Bilirubin GGT 84 H AST Alkaline Phosphatase 187 H Lactate Dehydrogenase C-Reactive Protein 15.90 H NT-Pro-B Natriuret Pep Albumin Globulin 3.8 H Albumin/Globulin Ratio 0.8 L Triglycerides 170 H Procalcitonin 06/09/22 06/09/22 06/09/22 07:46 07:46 07:44 WBC Immature Gran % (Auto) Neut % (Auto) Lymph % (Auto) Lymph # (Auto) Seg Neutrophils % Band Neutrophils % Lymphocytes % Immature Gran # Absolute Neutrophils RBC Morphology Hypochromasia ESR D-Dimer 3.47 H POC pO2 POC VBG pO2 POC Venous O2 Sat Hgb O2 Saturation Sodium Chloride Anion Gap Creatinine Glucose Calcium POC WB Ioniz Calcium Phosphorus Direct Bilirubin GGT AST Alkaline Phosphatase Lactate Dehydrogenase C-Reactive Protein 27.20 H NT-Pro-B Natriuret Pep 448.2 H Albumin Globulin Albumin/Globulin Ratio Triglycerides Procalcitonin 06/09/22 06/09/22 06/09/22 07:44 05:18 05:18 WBC Immature Gran % (Auto) Neut % (Auto) Lymph % (Auto) Lymph # (Auto) Seg Neutrophils % Band Neutrophils % Lymphocytes % Immature Gran # Absolute Neutrophils RBC Morphology Hypochromasia ESR > 130 H D-Dimer POC pO2 59 L POC VBG pO2 POC Venous O2 Sat Hgb O2 Saturation 90.0 L Sodium Chloride Anion Gap Creatinine Glucose Calcium POC WB Ioniz Calcium Phosphorus Direct Bilirubin GGT AST Alkaline Phosphatase Lactate Dehydrogenase C-Reactive Protein NT-Pro-B Natriuret Pep Albumin Globulin Albumin/Globulin Ratio Triglycerides Procalcitonin 0.56 H 06/09/22 06/09/22 06/08/22 05:18 05:18 05:03 WBC 13.5 H Immature Gran % (Auto) 0.9 H Neut % (Auto) 80.5 H Lymph % (Auto) 13.0 L Lymph # (Auto) Seg Neutrophils % Band Neutrophils % Lymphocytes % Immature Gran # 0.12 H Absolute Neutrophils 10.89 H RBC Morphology Hypochromasia ESR D-Dimer POC pO2 POC VBG pO2 POC Venous O2 Sat Hgb O2 Saturation Sodium 131 L Chloride 94 L Anion Gap Creatinine Glucose 123 H Calcium 8.4 L 8.4 L POC WB Ioniz Calcium Phosphorus 2.3 L Direct Bilirubin 0.4 H GGT 91 H AST 44 H Alkaline Phosphatase 217 H 140 H Lactate Dehydrogenase 241 H C-Reactive Protein NT-Pro-B Natriuret Pep Albumin 3.0 L 3.1 L Globulin 4.2 H Albumin/Globulin Ratio 0.7 L 0.8 L Triglycerides 182 H 152 H Procalcitonin 06/08/22 06/07/22 06/07/22 05:03 20:55 20:53 WBC 14.7 H Immature Gran % (Auto) Neut % (Auto) Lymph % (Auto) Lymph # (Auto) Seg Neutrophils % 82 H Band Neutrophils % Lymphocytes % 7 L 7 L Immature Gran # Absolute Neutrophils RBC Morphology Abnormal A Hypochromasia 1+ A ESR D-Dimer POC pO2 POC VBG pO2 POC Venous O2 Sat Hgb O2 Saturation Sodium Chloride Anion Gap Creatinine Glucose Calcium POC WB Ioniz Calcium Phosphorus Direct Bilirubin GGT AST Alkaline Phosphatase 118 H Lactate Dehydrogenase C-Reactive Protein NT-Pro-B Natriuret Pep Albumin Globulin 4.0 H Albumin/Globulin Ratio Triglycerides Procalcitonin 06/07/22 06/07/22 06/07/22 20:49 20:10 20:08 WBC 20.8 H Immature Gran % (Auto) 1.1 H Neut % (Auto) 86.9 H Lymph % (Auto) 7.2 L Lymph # (Auto) 1.49 L Seg Neutrophils % Band Neutrophils % Lymphocytes % Immature Gran # 0.22 H Absolute Neutrophils 18.11 H RBC Morphology Hypochromasia ESR D-Dimer POC pO2 POC VBG pO2 21 L POC Venous O2 Sat 30.0 L Hgb O2 Saturation Sodium Chloride Anion Gap Creatinine Glucose Calcium POC WB Ioniz Calcium Phosphorus Direct Bilirubin GGT AST Alkaline Phosphatase Lactate Dehydrogenase C-Reactive Protein NT-Pro-B Natriuret Pep Albumin Globulin Albumin/Globulin Ratio Triglycerides Procalcitonin 1.43 H 06/07/22 20:07 WBC Immature Gran % (Auto) Neut % (Auto) Lymph % (Auto) Lymph # (Auto) Seg Neutrophils % Band Neutrophils % Lymphocytes % Immature Gran # Absolute Neutrophils RBC Morphology Hypochromasia ESR D-Dimer POC pO2 POC VBG pO2 POC Venous O2 Sat Hgb O2 Saturation Sodium Chloride Anion Gap Creatinine Glucose Calcium POC WB Ioniz Calcium 1.14 L Phosphorus Direct Bilirubin GGT AST Alkaline Phosphatase Lactate Dehydrogenase C-Reactive Protein NT-Pro-B Natriuret Pep Albumin Globulin Albumin/Globulin Ratio Triglycerides Procalcitonin Meds: Medications Acetaminophen (Acetaminophen 325 Mg Tablet) 650 mg PO Q6HP PRN; Protocol PRN Reason: Per Pain Protocol/Fever > 101 Last Admin: 06/08/22 06:07 Dose: 650 mg Hydrocodone Bitart/Acetaminophen (Hydrocodone/Apap 5/325mg Tablet) 1 tab PO Q4HP PRN PRN Reason: PAIN LEVEL 3-6 Last Admin: 06/10/22 04:09 Dose: 1 tab Albuterol/Ipratropium (Ipratropium/Albuterol 3 Ml Ampul.Neb) 3 ml NEB Q4HP PRN PRN Reason: Shortness Of Breath Last Admin: 06/10/22 05:31 Dose: 3 ml Albuterol/Ipratropium (Ipratropium/Albuterol 3 Ml Ampul.Neb) 3 ml NEB BID [facility] Last Admin: 06/10/22 07:16 Dose: 3 ml Enoxaparin Sodium (Enoxaparin 40 Mg/0.4 Ml Syringe) 40 mg SQ DAILY [facility] Last Admin: 06/09/22 09:24 Dose: 40 mg Guaifenesin (Guaifenesin 600 Mg Tab.Sr.12h) 600 mg PO BID [facility] Last Admin: 06/09/22 20:06 Dose: 600 mg Potassium Chloride 40 meq/ (Dextrose) 520 mls @ 130 mls/hr IV UD PRN PRN Reason: Potassium < 3 Magnesium Sulfate (Magnesium Sulfate) 2 gm in 50 mls @ 50 mls/hr IV UD PRN PRN Reason: Magnesium </= 1.6 Azithromycin 500 mg/ Dextrose 250 mls @ 250 mls/hr IV Q24H [facility]; Protocol Stop: 06/10/22 10:59 Last Infusion: 06/09/22 12:32 Dose: Infused Piperacillin Sod/Tazobactam (Sod 3.375 gm/ Dextrose) 50 mls @ 100 mls/hr IV Q6H [facility]; Protocol Last Infusion: 06/10/22 01:30 Dose: Infused Lorazepam (Lorazepam 2 Mg/Ml Vial) 0.5 mg IV Q6HP PRN PRN Reason: ANXIETY/SEDATION Last Admin: 06/10/22 01:27 Dose: 0.5 mg Ondansetron HCl (Ondansetron 4 Mg/2 Ml Vial) 4 mg IV Q4HP PRN PRN Reason: Nausea And Vomiting Potassium Chloride (Potassium Chloride 20 Meq Tablet) 40 meq PO UD PRN PRN Reason: Potssium is 3-3.5 Potassium Chloride (Potassium Chloride 20 Meq Tablet) 40 meq PO UD PRN PRN Reason: Potassium < 3 Prednisone (Prednisone 20 Mg Tablet) 40 mg PO BIDCC [facility] Last Admin: 06/10/22 07:36 Dose: 40 mg Sodium Chloride (0.9 % Sodium Chloride 10 Ml Syringe) 10 ml IV Q8 [facility] Last Admin: 06/10/22 05:38 Dose: 10 ml A/P Narrative A/P Narrative: A: *b/l PNA: -no PE on f/u CTA no pe, b/l pna noted but with slight improvement -echo no pericardial effusion or other sig finding -strep/covid/flu/rsv neg, but (+) Human metapneumovirus, SC with GPC in pairs , Elevated PCT but improving *Acute hypoxic Respiratory failure: - *Sepsis: tachycardia, mild tachypnea, leukocytosis now with bandemia. afebrile *Sinus tach: likely anxiety component, no PE. overall mildly improved *Reactive airway: start corticosteroids, continue nebulizers *Hyponatremia: improved *Obesity: BMI 42 *Anxiety: P: -IV abx broadened yesterday, mrsa screen neg -pending BC/SC -IS/Acapella, -corticosteroids, nebs -trend pct -wean off O2, monitor -Monitor rhythm/pulse -cmp, sputum, pct -ppx: Lovenox Time Spent With Patient Time: Total time spent is greater than 50% in coordination of care (as documented) at patient's floor/unit and/or counseling patient: Subsequent: Total time with patient: 50 - 65 Minutes
[2022-06-10 08:58] LABS: Lymphocytes % 17 % (15-49); Monocytes % (Manual) 3 % (1-12); Myelocytes % 1 %; Platelet Estimate NORMAL (Normal); RBC Morphology NORMAL (Normal); Segmented Neutrophils % 79 % (38-78)
[2022-06-10] MEDS ORDERED: HYDROcodone/APAP 5/325MG TABLET PO PRN (09:17)
[2022-06-10] MEDS: guaiFENesin 600 MG TAB.SR.12H PO SCH ×2 (09:34→20:14)
[2022-06-10] MEDS: ENOXAPARIN 40 MG/0.4 ML SYRINGE SQ SCH (09:35)
[2022-06-10] MEDS: AZITHROMYCIN 500 MG in DEXTROSE 5% IN WATER 250 ML IV SCH (10:36)
[2022-06-10] MEDS ORDERED: POLYETHYLENE GLYCOL 3350 17 GM PACKET PO PRN (18:48)
[2022-06-10] MEDS: DOCUSATE SODIUM 100 MG CAPSULE PO SCH (20:14)
[2022-06-11] MEDS: PIPERACILLIN SODIUM/TAZOBACTAM 3.375 GM in DEXTROSE 5% IN WATER 50 ML IV SCH ×2 (00:04→08:33)
[2022-06-11] MEDS: IPRATROPIUM/ALBUTEROL 3 ML AMPUL.NEB NEB SCH ×3 (00:05→13:36)
[2022-06-11] MEDS: HYDROcodone/APAP 5/325MG TABLET PO PRN ×2 (03:08→08:32)
[2022-06-11] MEDS: 0.9 % SODIUM CHLORIDE 10 ML SYRINGE IV SCH (05:03)
[2022-06-11 08:07] LABS: Hematocrit 36.7 % (34.1-44.9); Hemoglobin 11.4 g/dL (11.2-15.7); Mean Cell Volume 89.7 fL (80.0-100.0); Mean Corpuscular HGB Conc 31.1 g/dL (31.0-36.0); Mean Platelet Volume 9.7 fL (8.8-12.5); Platelet Count 422 K/mcL (140-440); RBC 4.09 M/mcL (3.59-5.38); Red Cell Distribution Width 13.9 % (11.5-14.5); WBC 16.3 K/mcL (4.5-11.0)
[2022-06-11] MEDS: ENOXAPARIN 40 MG/0.4 ML SYRINGE SQ SCH (08:31)
[2022-06-11] MEDS: DOCUSATE SODIUM 100 MG CAPSULE PO SCH (08:32)
[2022-06-11] MEDS: guaiFENesin 600 MG TAB.SR.12H PO SCH (08:32)
[2022-06-11] MEDS: predniSONE 20 MG TABLET PO SCH (08:32)
[2022-06-11 08:47] LABS: ALT/SGPT 29 U/L (<40); AST/SGOT 22 U/L (<32); Albumin/Globulin Ratio 0.8 (1.0-2.3); Alkaline Phosphatase 154 U/L (39-117); Bilirubin,Direct < 0.2 mg/dL (0-0.3); Bilirubin,Total < 0.2 mg/dL (0.1-1.0); Blood Urea Nitrogen 18 mg/dL (6-20); Calcium 8.7 mg/dL (8.6-10.4); Carbon Dioxide 27 mmol/L (22-30); Chloride 97 mmol/L (96-108); Globulin 3.7 gm/dL (2.2-3.7); Glomerular Filtration Rate 111; Glucose 136 mg/dL (70-105); Lactate Dehydrogenase 285 U/L (135-225); Phosphorous 3.3 mg/dL (2.5-4.5); Triglycerides 214 mg/dL (<150); Uric Acid 3.2 mg/dL (2.5-8.0)
[2022-06-11 09:00] LABS: Band Neutrophils % 1 % (0-10); Hypochromasia 1+ (None Seen); Lymphocytes % 20 % (15-49); Monocytes % (Manual) 4 % (1-12); Platelet Estimate NORMAL (Normal); RBC Morphology ABNORMAL (Normal); Segmented Neutrophils % 75 % (38-78)
--- NOTE | 2022-06-11 13:28 | EKG ---
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
--- NOTE | 2022-06-11 13:46 | EKG ---
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 Loss of R wave progressin lateral leads, possible lateral infarct recent vs lead placement Electronically Signed On 06-11-2022 13:46:34 PST by Joan Daily /[email or web address]/[id number]
== END 2022-06-11 14:30 | disposition home or self-care (01) | DRG 871 ==
LOC: ED 17:53 → MEDSUR 17:53
PROVIDERS: ADMIT Internal Medicine; ATTEND Internal Medicine